=== PATIENT | male | born 1945 | race Caucasian/White ===

== ENCOUNTER 2021-02-11 06:55 | Day surgery (SDC) | payer MEDICARE, OTHER ==
[2021-01-17 10:17] VITALS: BMI 26.9
[~2021-02-11 06:55] MED LIST: LACTATED RINGERS 1,000 ML IV SCH; LIDOCAINE 1% (10MG/ML) FOR IV START INTRADERMA PRN
[2021-02-11 07:25] VITALS: TEMP 97.7
[2021-02-11] MEDS ORDERED: LIDOCAINE 1% INJ 10MG/ML (20 ML MDV) ONE (07:59)
[2021-02-11] MEDS ORDERED: PROPOFOL 10 MG/ML 20 ML VIAL IV ONE (07:59)
--- NOTE | 2021-02-11 08:30 | P.PCN ---
Date of Procedure: 02/11/21 Description of Procedure: BRIEF HISTORY: Patient is a 75-year-old male presenting for outpatient esophagogastroduodenoscopy for evaluation of symptoms of dysphagia. Patient has had 3 years of symptoms of dysphagia worse over the past few months. Predominantly to solid food. Patient currently not on any PPI. PROCEDURE PERFORMED: Esophagogastroduodenoscopy with biopsy and uvwfmvx-kfh-uvqkr balloon dilation. PREOPERATIVE DIAGNOSIS: Esophageal dysphagia. ESTIMATED BLOOD LOSS: Minimal. IV sedation per anesthesia. PROCEDURE: After informed consent was obtained, the patient was brought into the endoscopy unit. IV sedation was administered by Anesthesia under continuous monitoring. Initially the Olympus GIF-190 video endoscope was inserted into the mouth. Esophagus intubated without any difficulty. It was gradually advanced into the stomach and duodenum and carefully examined. The bulb and the second part of the duodenum appeared normal, with biopsies taken. The scope at this time was withdrawn to the stomach, adequately insufflated with air, and upon careful ex amination, mucosa of the antrum, body, cardia and the fundus appeared normal, with biopsies of the antrum and body taken. The scope was then withdrawn into the esophagus. The GE junction was located at 43 cm from the incisors and appeared normal except for a benign-appearing distal esophageal Schatzki's ring/stricture which was fairly dilated with pvgbdox-llq-xinmy balloon dilator at 10 mm11 mm12 mm until superficial mucosal tearing was noted. Biopsies of the lower esophagus and midesophagus to. The esophagus appeared normal. There were no erosions or ulcerations seen and the patient tolerated the procedure well. IMPRESSION: 1. Nonobstructing distal esophageal Schatzki's ring/stricture, dilated with iiqofkr-fvs-ucdtn balloon dilator. 2. Biopsies of the duodenum, antrum body, lower esophagus and midesophagus. RECOMMENDATIONS: The findings of this examination were discussed with the patient .and his family. Okay to resume diet. Okay to resume medications. Await pathology from biopsies. Recommend repeat EGD for further dilation if symptoms persist. Patient has been given a prescription for omeprazole 20 mg daily be taken 15-30 minutes before meals.
[2021-02-11 08:32] VITALS: PULSE 68; RESP 16
[2021-02-11 08:51] VITALS: BP 132/79
== END 2021-02-11 09:15 | disposition home or self-care (01) ==
LOC: ORWHC2ENDO 06:55
PROVIDERS: ATTEND Internal Medicine
DX: K22.2 Esophageal obstruction (principal); K21.9 Gastro-esophageal reflux disease without esophagitis; K29.80 Duodenitis without bleeding; K20.0 Eosinophilic esophagitis; K29.50 Unspecified chronic gastritis without bleeding; I10 Essential (primary) hypertension; N42.9 Disorder of prostate, unspecified; Z79.899 Other long term (current) drug therapy
CPT/HCPCS: 88305; 43239; 43249; J2001; J2704; C1726 ×2

== ENCOUNTER → 2023-10-14 | Outpatient (CLI) | payer MEDICARE, OTHER ==
[2023-10-15 06:37] LABS: Albumin 4.1 g/dL (3.8-4.9); Protein, Total 7.3 g/dL (6.2-8.2)
[2023-10-15 15:47] LABS: Gamma Globulin 1.55 g/dL (0.70-1.50)
== END | disposition home or self-care (01) ==
LOC: LABWHC1 06:54
PROVIDERS: ATTEND Psychiatry & Neurology Neurology
DX: G90.09 Other idiopathic peripheral autonomic neuropathy (principal)
CPT/HCPCS: 36415; 82607; 83036; 84165; 84207; 86334

== ENCOUNTER → 2023-12-23 | Outpatient (CLI) | payer MEDICARE, OTHER ==
--- NOTE | 2023-12-27 15:26 | MR ---
EXAMINATION TYPE: MR lumbar spine wo/w con DATE OF EXAM: 12/23/2023 8:55 AM CLINICAL INDICATION:Male, 78 years old with history of M54.50, Chronic LBP, BLE radiculopathy. COMPARISON: None TECHNIQUE: Multi planar, multi sequence imaging was performed utilizing: T1-weighted, T2-weighted, a nd turbo inversion recovery imaging of the lumbar spine. IV Contrast: 9 cc Gadavist. (None if empty) FINDINGS: Alignment: The lumbar vertebral bodies have preserved heights and alignment. Cord: The conus medullaris and the distal spinal cord appear unremarkable with regards to their signa l intensity and morphology. No abnormal postcontrast enhancement. Bones/Discs: Mild degeneration changes throughout the spine with osteophyte formation and facet joint arthropathy. Intervertebral disc signal is maintained. T12-L1: No evidence of significant spinal canal stenosis or neural foraminal stenosis. L1-L2: No evidence of significant spinal canal stenosis or neural foraminal stenosis. L2-L3: Disc bulge and facet joint arthropathy result in mild spinal canal and moderate bilateral neur al foraminal stenosis. L3-L4: Disc bulge and facet joint arthropathy result in mild spinal canal and moderate to severe bila teral neural foraminal stenosis. L4-L5: Disc bulge and facet joint arthropathy result in mild spinal canal and moderate to severe bila teral neural foraminal stenosis. L5-S1: The disc is rounded posterior morphology without significant spinal canal stenosis. Facet join t arthropathy with moderate to severe left and moderate right neural foraminal stenosis. . Osteophyte impresses upon the exiting left nerve series 601 image 5. No significant spinal canal or neural foraminal stenosis in the remainder of the visualized levels. Other findings: Infrarenal abdominal aorta fusiform dilation up to 3.0 cm. IMPRESSION: 1. No definitive evidence of disc herniation or significant spinal canal stenosis. No abnormal postc ontrast enhancement. 2. 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 No neural foraminal stenosis w orse at L5-S1 with osteophytes displacing the exiting left nerve. Additional moderate to severe neura l foraminal stenosis at multiple levels. 3. Infrarenal abdominal aortic aneurysm measuring up to 3.0 cm.
== END | disposition home or self-care (01) ==
LOC: RADMRIMAIN 07:43
PROVIDERS: ATTEND Internal Medicine Hematology & Oncology
DX: M51.36 Other intervertebral disc degeneration, lumbar region (principal); M99.73 Connective tissue and disc stenosis of intervertebral foramina of lumbar region; I71.43 Infrarenal abdominal aortic aneurysm, without rupture
CPT/HCPCS: 72158; A9585

== ENCOUNTER 2024-02-05 13:35 | Emergency (ER) | payer MEDICARE, OTHER ==
--- NOTE | 2024-02-05 14:47 | ED ---
SOB HPI - General Chief Complaint: Shortness of Breath Stated Complaint: LUBNA,Congestion Time Seen by Provider: 02/05/24 14:46 Source: patient, family, RN notes reviewed Mode of arrival: ambulatory Limitations: no limitations - History of Present Illness Initial Comments: 78-year-old male presented to the ER with chief complaint of cough and shortness of breath. He states this been going on for the past 2 weeks. He has been prescribed a Medrol Dosepak and doxycycline by PCP without relief. He states his cough has been persistent and he is having difficulty catching his breath. He denies any known fevers or chills. He is a former smoker. Denies any headache, chest pain, abdominal pain, constipation/diarrhea, urinary complaints or peripheral edema. - Related Data Home Medications Medication Instructions Recorded Confirmed Dutasteride [Avodart] 0.5 mg PO HS 01/17/21 02/05/24 Multivitamins, Thera [Multivitamin 1 tab PO DAILY 01/17/21 02/05/24 (formulary)] Tamsulosin [Flomax] 0.4 mg PO BID 01/17/21 02/05/24 levETIRAcetam [Keppra] 1,000 mg PO Q12HR 01/17/21 02/05/24 Atorvastatin [Lipitor] 10 mg PO HS 02/05/24 02/05/24 Cholecalciferol (Vitamin D3) 125 mcg PO DAILY 02/05/24 02/05/24 [Vitamin D3 (125 MCG = 5,000 IU)] Clobetasol Propionate [Clobex 1 applic TOPICAL HS PRN 02/05/24 02/05/24 0.05% Soln] Doxycycline Hyclate 100 mg PO BID 02/05/24 02/05/24 Escitalopram [Lexapro] 10 mg PO DAILY 02/05/24 02/05/24 Gabapentin [Neurontin] 100 mg PO TID 02/05/24 02/05/24 Hydrocortisone Cream 1 applic TOPICAL BID PRN 02/05/24 02/05/24 [Hydrocortisone 2.5% Cream] Ketoconazole 2% Shampoo [Nizoral] 1 applic TOPICAL DAILY PRN 02/05/24 02/05/24 LORazepam [Ativan] 0.5 mg PO TID PRN 02/05/24 02/05/24 Lidocaine 5% Patch [Lidoderm] 1 patch TOPICAL DAILY PRN 02/05/24 02/05/24 Metoprolol Succinate (ER) [Toprol 12.5 mg PO DAILY 02/05/24 02/05/24 Xl] allopurinoL [Zyloprim] 300 mg PO DAILY 02/05/24 02/05/24 fluocinolone acetonide oiL 1 applic BOTH EARS HS PRN 02/05/24 02/05/24 [fluocinolone acetonide oiL 0.01% (Otic)] methylPREDNISolone [Medrol Dose See Taper PO DIRECTED 02/05/24 02/05/24 Pack] tadalafiL 20 mg PO DAILY PRN 02/05/24 02/05/24 Previous Rx's Medication Instructions Recorded Benzonatate [Tessalon Perles] 100 mg PO TID PRN #15 capsule 02/05/24 Allergies Allergy/AdvReac Type Severity Reaction Status Date / Time No Known Allergies Allergy Verified 02/05/24 15:37 Review of Systems ROS Statement: Those systems with pertinent positive or pertinent negative responses have been documented in the HPI. ROS Other: All systems not noted in ROS Statement are negative. Past Medical History Past Medical History: GERD/Reflux, Hypertension, Prostate Disorder, Seizure Disorder Additional Past Medical History / Comment(s): had both covid vaccines,last seizure 2010, difficulty swallowing History of Any Multi-Drug Resistant Organisms: None Reported Past Surgical History: Appendectomy, Tonsillectomy Additional Past Surgical History / Comment(s): lt thumb Past Anesthesia/Blood Transfusion Reactions: No Reported Reaction Past Psychological History: No Psychological Hx Reported Smoking Status: Former smoker - Past Family History Father Family Medical History: Cancer Additional Family Medical History / Comment(s): skin General Exam Limitations: no limitations General appearance: alert, in no apparent distress, other (Mildly dyspneic with conversation) ENT exam: Present: normal exam, normal oropharynx, mucous membranes moist, TM's normal bilaterally Neck exam: Present: normal inspection. Absent: tenderness, meningismus, lymphadenopathy Respiratory exam: Present: wheezes (Upper lung green), rhonchi (Upper lung green) Cardiovascular Exam: Present: regular rate, normal rhythm, normal heart sounds. Absent: systolic murmur, diastolic murmur, rubs, gallop, clicks Extremities exam: Present: normal inspection, full ROM, normal capillary refill. Absent: tenderness, pedal edema, joint swelling, calf tenderness Neurological exam: Present: alert, oriented X3, CN II-XII intact Skin exam: Present: warm, dry, intact, normal color. Absent: rash Course Vital Signs 02/05/24 02/05/24 02/05/24 13:52 15:00 16:32 Temperature 97.5 F L Pulse Rate 69 53 L Respiratory 18 20 Rate Blood Pressure 147/83 O2 Sat by Pulse 95 Oximetry 02/05/24 02/05/24 16:43 17:10 Temperature 98.2 F Pulse Rate 60 61 Respiratory 18 Rate Blood Pressure 156/89 O2 Sat by Pulse 96 Oximetry Medical Decision Making - Medical Decision Making Was pt. sent in by a medical professional or institution (, PA, [facility], urgent care, hospital, or skilled nursing...) When possible be specific @ -No Did you speak to anyone other than the patient for history (EMS, parent, family, police, friend...)? What history was obtained from this source @ -No Did you review nursing and triage notes (agree or disagree)? Why? @ -I reviewed and agree with nursing and triage notes Were old charts reviewed (outside hosp., previous admission, EMS record, old EKG, old radiological studies, urgent care reports/EKG's, skilled nursing records)? Report findings @ -No old charts were reviewed Differential Diagnosis (chest pain, altered mental status, abdominal pain women, abdominal pain men, vaginal bleeding, weakness, fever, dyspnea, syncope, headache, dizziness, GI bleed, back pain, seizure, CVA, palpatations, mental health, musculoskeletal)? @ -Differential Dyspnea:Coronary syndrome, arrhythmia, tamponade, asthma, COPD, pulmonary embolism, pneumonia, pneumothorax, pulmonary effusion, anaphylaxis, diabetic ketoacidosis, flailed chest, pulmonary contusion, diaphragmatic rupture, anemia, neuromuscular, this is not meant to be an all-inclusive list. EKG interpreted by me (3pts min.). @ -None X-rays interpreted by me (1pt min.). @ -Chest x-ray significant for cardiomegaly. No other acute process. CT interpreted by me (1pt min.). @ -None done U/S interpreted by me (1pt. min.). @ -None done What testing was considered but not performed or refused? (CT, X-rays, U/S, labs)? Why? @ -None What meds were considered but not given or refused? Why? @ -None Did you discuss the management of the patient with other professionals (professionals i.e. , PA, [facility], lab, RT, psych nurse, social services aide, endless belt finisher, teacher, custody officer, supervisor case loading)? Give summary @ -No Was smoking cessation discussed for >3mins.? @ -No Was critical care preformed (if so, how long)? @ -No Were there social determinants of health that impacted care today? How? (Homelessness, low income, unemployed, alcoholism, drug addiction, transportation, low edu. Level, literacy, decrease access to med. care, fci, rehab)? @ -No Was there de-escalation of care discussed even if they declined (Discuss DNR or withdrawal of care, Hospice)? DNR status @ -No What co-morbidities impacted this encounter? (DM, HTN, Smoking, COPD, CAD, Cancer, CVA, ARF, Chemo, Hep., AIDS, mental health diagnosis, sleep apnea, morbid obesity)? @ -None Was patient admitted / discharged? Hospital course, mention meds given and route, prescriptions, significant lab abnormalities, going to OR and other pertinent info. @ -Discharge. 78-year-old male presented to the ER with chief complaint of a cough. History and physical exam completed. Vitals stable. Patient no signs of acute distress and nontoxic-appearing. Patient coughing with deep inspiration. Denies any pain. Lungs sounds significant for wheezing and rhonchi in upper lung green. COVID, RSV, influenza negative. Chest x-ray significant for cardiomegaly. Patient received Tessalon Perles and DuoNeb treatment in ER. Upon reevaluation, patient eager for discharge. Tessalon Perles prescribed. Advise close follow-up with PCP and advised if symptoms persist he should follow-up with cardiology. reports his market research senior project manager is Dr. Griffin. Return parameters discussed. Patient discharged in stable condition with follow-up to cardiology/PCP. Patient and verbally expressed understanding and agreement with care plan. Case discussed with ED attending, Dr. Bell. Undiagnosed new problem with uncertain prognosis? @ -No Drug Therapy requiring intensive monitoring for toxicity (Heparin, Nitro, Insulin, Cardizem)? @ -No Were any procedures done? @ -No Diagnosis/symptom? @ -Cough Acute, or Chronic, or Acute on Chronic? @ -Acute Uncomplicated (without systemic symptoms) or Complicated (systemic symptoms)? @ -Uncomplicated Side effects of treatment? @ -No Exacerbation, Progression, or Severe Exacerbation? @ -No Poses a threat to life or bodily function? How? (Chest pain, USA, ID, pneumonia, PE, COPD, DKA, ARF, appy, cholecystitis, CVA, Diverticulitis, Homicidal, Suicidal, threat to staff... and all critical care pts) @ -No - Lab Data Lab Results 02/05/24 Range/Units 14:53 Influenza Type A (PCR) Not Detected (Not Detectd) Influenza Type B (PCR) Not Detected (Not Detectd) RSV (PCR) Not Detected (Not Detectd) SARS-CoV-2 (PCR) Not Detected (Not Detectd) - Radiology Data Radiology results: report reviewed, image reviewed Disposition Clinical Impression: Cough, Cardiomegaly Disposition: HOME SELF-CARE Condition: Stable Instructions (If sedation given, give patient instructions): Chronic Cough (ED) Additional Instructions: Follow-up with market research senior project manager, Dr. Griffin, if symptoms persist. Return to the ER for any new or worsening concerns. Prescriptions: Benzonatate [Tessalon Perles] 100 mg PO TID PRN #15 capsule PRN Reason: Cough Is patient prescribed a controlled substance at d/c from ED?: No Referrals: Jesus Campo DO [Primary Care Provider] - 1-2 days Kevin Griffin DO [STAFF PHYSICIAN] - 1-2 days Time of Disposition: 17:05
[2024-02-05] MEDS: BENZONATATE 100 MG CAP PO STA (14:59)
--- NOTE | 2024-02-05 15:22 | XR ---
EXAMINATION TYPE: XR chest 2V DATE OF EXAM: 02/05/2024 COMPARISON: None INDICATION: Cough TECHNIQUE: Frontal and lateral views of the chest are obtained. FINDINGS: The heart size is mildly prominent. The pulmonary vasculature is normal. The lungs are clear. No focal infiltrates evident. IMPRESSION: 1. Mild cardiomegaly.
[2024-02-05] MEDS: IPRATROPIUM-ALBUTEROL 3 ML NEB INHALATION STA (16:32)
[2024-02-05 17:43] VITALS: BP 156/89; PULSE 61; RESP 18; TEMP 98.2
== END 2024-02-05 20:59 | disposition home or self-care (01) ==
LOC: EC 13:35
DX: R05.9 Cough, unspecified (principal); I51.7 Cardiomegaly; Z87.891 Personal history of nicotine dependence
CPT/HCPCS: 71046; 87636; 94640; 99285

== ENCOUNTER → 2024-02-22 | Outpatient (CLI) | payer MEDICARE, OTHER ==
[2024-02-22 14:35] LABS: African American GFR (CKD) 86 (>60 ml/min/1.73 sqM); Blood Urea Nitrogen 22 mg/dL (9-20); Non-African American GFR(CKD) 75 (>60 ml/min/1.73 sqM)
--- NOTE | 2024-02-22 19:08 | CT ---
EXAMINATION TYPE: CT angio chest CT DLP: 548 mGycm, Automated exposure control for dose reduction was used. DATE OF EXAM: 02/22/2024 2:55 PM COMPARISON: Chest radiograph of 02/05/2024 CLINICAL INDICATION:Male, 78 years old with history of R06.02 SHORTNESS OF BREATH; sob TECHNIQUE/CONTRAST: CTA scan of the thorax is performed with IV Contrast, patient injected with 100 mL of Isovue 300, MIP images are created and reviewed these are created on a separate workstation.. FINDINGS: Pulmonary Artery: There is no evidence for a filling defect within the pulmonary vasculature to sugge st acute pulmonary embolism. The pulmonary artery is of normal size. Lungs/Pleura: Moderately severe centrilobular emphysema upper mid lung zones. Limited end-stage nilda g disease and dependent lower lobes. No evidence of focal consolidation, pleural effusion or pneumoth orax. Airway: Large airways are patent. Heart: Mild cardiomegaly. Mild to moderate calcific coronary artery disease. Vasculature: No evidence of aortic aneurysm. Mediastinum: No gross evidence of adenopathy. Musculoskeletal: No acute osseous abnormalities Soft Tissues: Unremarkable. Lower neck: No significant findings. Upper Abdomen: No significant findings. IMPRESSION: 1. No evidence of pulmonary embolism. 2. Moderately pronounced emphysema. 3. Mild cardiomegaly and coronary artery disease. Follow up recommendations for incidental pulmonary nodules, if there are any, are per [employer] or [employer]. https://radiopaedia.org/articles/snguzkjtis-psmhgxx-[email or web address]-[email or web address]?lang=us
== END | disposition home or self-care (01) ==
LOC: RADCTMAIN 13:44
PROVIDERS: ATTEND Internal Medicine
DX: J43.2 Centrilobular emphysema (principal); I51.7 Cardiomegaly; I25.10 Atherosclerotic heart disease of native coronary artery without angina pectoris
CPT/HCPCS: 82565; 84520; 71275; 36415; Q9967

== ENCOUNTER → 2024-02-26 | Outpatient (CLI) | payer MEDICARE, OTHER | END | disposition home or self-care (01) | LOC: LABPRL 11:42 | PROVIDERS: ATTEND Internal Medicine Critical Care Medicine | DX: J44.1 Chronic obstructive pulmonary disease with (acute) exacerbation (principal) | CPT/HCPCS: 87070; 87205 ==

== ENCOUNTER → 2024-03-28 | Outpatient (CLI) | payer MEDICARE, OTHER ==
[2024-03-28 15:39] LABS: HGB 14.5 g/dL (13.0-17.0); MCH 34.9 pg (27.0-32.0); Mean Platelet Volume 10.5 FL (9.5-12.2); NRBC Per 100 WBC 0 X 10*3/uL (0.00-0.01); Platelet Count 229 X 10*3/uL (140-440); RBC 4.15 X 10*6/uL (4.40-5.60); WBC 5.42 X 10*3/uL (4.50-10.00)
[2024-03-28 15:48] LABS: Blood Urea Nitrogen 15.8 mg/dL (9.0-27.0)
[2024-03-28 15:49] LABS: Carbon Dioxide 26.1 mmol/L (21.6-31.8); Chloride 104 mmol/L (96-109); Potassium 5.1 mmol/L (3.5-5.5); Sodium 141 mmol/L (135-145)
== END | disposition home or self-care (01) ==
LOC: LABPAT 09:36
PROVIDERS: ATTEND Internal Medicine
DX: Z01.812 Encounter for preprocedural laboratory examination (principal)
CPT/HCPCS: 80051; 82565; 84520; 85027

== ENCOUNTER → 2024-03-30 | Day surgery (SDC) | payer MEDICARE, OTHER ==
[2024-03-29 09:01] VITALS: BMI 26.4
[~2024-03-30] MED LIST changes: +ALPRAZolam 0.25 MG TAB PO PRN; +ALPRAZolam 0.5 MG TAB PO PRN; +ASPIRIN 325 MG TAB PO STA; +HEPARIN SODIUM 1,000 UN/ML (10ML VL) ONE; -LACTATED RINGERS 1,000 ML IV SCH; -LIDOCAINE 1% (10MG/ML) FOR IV START INTRADERMA PRN; +NITROGLYCERIN SL TABS 0.4 MG TAB SUBLINGUAL PRN; +fentaNYL (PF) 50 MCG/ML 2 ML AMP ONE
[2024-03-30] MEDS: SODIUM CHLORIDE 0.9% 1,000 ML in EMPTY BAG 1 BAG IV SCH (08:12)
[2024-03-30 08:14] VITALS: RESP 16; TEMP 98
[2024-03-30] MEDS: fentaNYL (PF) 50 MCG/ML 2 ML AMP IVP ONE (09:30)
[2024-03-30] MEDS: MIDAZOLAM 2 MG/2 ML VIAL IVP ONE (09:30)
[2024-03-30] MEDS: LIDOCAINE 1% INJ 10MG/ML (20 ML MDV) SQ ONE (09:35)
[2024-03-30] MEDS: IOPAMIDOL-370 100ML BTL INJ ONE (09:53)
--- NOTE | 2024-03-30 09:58 | P.CARDCATH ---
Description of Procedure: PROCEDURES PERFORMED: Left heart catheterization, bilateral coronary angiography, ultrasound guided arterial access INDICATION: chest pain, dyspnea on exertion, coronary artery calcifications CONSENT:I have discussed the risks, benefits and alternative therapies for the above-mentioned procedure and for both sedation/analgesia as well as necessary blood product administration, if indicated, as they pertain to this patient. The patient has indicated understanding and acceptance of the risks and procedures discussed. PROCEDURE: After the risks, benefits and alternatives of the above mentioned procedure explained in detail with the patient, informed consent was obtained. Patient was taken to the catheterization lab and prepped and draped in usual fashion. Ultrasound guidance was used to assess for arterial access. Patient did not have an adequate Damaso's and therefore femoral axis was recommended. 1% lidocaine was used to anesthetize the right femoral area. A 6-English sheath was placed in the right femoral artery using modified Seldinger technique and ultrasound guidance. Left coronary angiography was performed with a 6-English JL 5.0 catheter (as the 4.0 was too short) and right coronary angiography was performed with a 6-English FR4 catheter in various views. A 6-English FR4 catheter was inserted into the left ventricle and pressure measurements were obtained. The right femoral angiogram showed adeqauet anatomy for closure and therefore a 6Fr Angioseal was placed with hemostasis achieved. The patient to lerated the procedure well. Patient was transported back to the post catheterization holding area in stable condition. Conscious Sedation: Patient was monitored under the direct supervision of myself for conscious sedation using Versed and fentanyl for a total duration of 15 minutes HEMODYNAMICS: Ao: 156/78 LV: 155/1, LVEDP 1 SELECTIVE CORONARY ARTERIOGRAPHY: LEFT MAIN: The left main is a large caliber vessel which bifurcates into the LAD and circumflex. There is no significant stenosis. LEFT ANTERIOR DESCENDING CORONARY ARTERY: LAD is a large caliber vessel which wraps around to the apex. There is mild mid LAD 20-30% stenosis and otherwise mild luminal irregularities. LEFT CIRCUMFLEX CORONARY ARTERY: Left circumflex is a moderate caliber vessel with mild luminal irregularities. RIGHT CORONARY ARTERY: The right coronary artery is a large caliber vessel which gives off a PDA and PLV branch and is the dominant vessel. There are mild luminal irregularities. FINAL IMPRESSION: 1. Mild CAD as described above with mid LAD 20-30% stenosis and otherwise mild luminal irregularities. 2. Low left sided filling pressures PLAN: 1. Aggressive risk factor modification per most recent ACC/AHA guidelines. 2. Follow-up in the office in 1-2 weeks.
[2024-03-30 15:41] VITALS: BP 156/72; PULSE 60
== END ==
LOC: CATHCVL 07:27
PROVIDERS: ATTEND Internal Medicine
DX: I25.10 Atherosclerotic heart disease of native coronary artery without angina pectoris (principal)
CPT/HCPCS: 93458; C1760; C1769 ×2; C1894 ×2; J2250; J2001; J3010; Q9967; 76937

== ENCOUNTER 2025-03-03 13:50 | Inpatient (IN) | payer MEDICARE, OTHER ==
--- NOTE | 2025-03-03 14:13 | ED ---
General Adult HPI - General Stated complaint: Palpitations Time Seen by Provider: 03/03/25 13:53 Source: patient, EMS, RN notes reviewed Mode of arrival: EMS Limitations: no limitations - History of Present Illness Initial comments: Patient is a 79-year-old male present to the emergency department with concerns for palpitations. Patient does have a history of this previously. Symptoms have worsened over the past week. Patient was recently placed on a monitor by cardiology, Dr. Griffin. Patient states he has had 4 episodes this past week where heart rate has dropped into the 30s. These episodes lasted up to around 10 minutes. Patient has associated lightheadedness. Patient denies any chest pain. Patient questions if he could have some associated dyspnea when symptoms are severe. EMS found patient in bigeminy on monitor occasionally. - Related Data Home Medications Medication Instructions Recorded Confirmed Multivitamins, Thera [Multivitamin 1 tab PO DAILY 01/17/21 03/03/25 (formulary)] levETIRAcetam [Keppra] 1,000 mg PO BID 01/17/21 03/03/25 Atorvastatin [Lipitor] 10 mg PO DAILY 02/05/24 03/03/25 Cholecalciferol (Vitamin D3) 125 mcg PO DAILY 02/05/24 03/03/25 [Vitamin D3 (125 MCG = 5,000 IU)] Escitalopram [Lexapro] 10 mg PO DAILY 02/05/24 03/03/25 Gabapentin [Neurontin] 300 mg PO HS 02/05/24 03/03/25 LORazepam [Ativan] 0.5 mg PO TID PRN 02/05/24 03/03/25 allopurinoL [Zyloprim] 300 mg PO DAILY 02/05/24 03/03/25 Azelastine HCl [Astepro Allergy] 1 spray EA NOSTRIL HS 03/03/25 03/03/25 Clobetasol Propionate [Temovate 1 applic TOPICAL DAILY 03/03/25 03/03/25 0.05% Oint] Fluticasone/Umeclidin/Vilanter 1 puff INHALATION RT-DAILY 03/03/25 03/03/25 [Trelegy Ellipta 100-62.5-25] Furosemide [Lasix] 20 mg PO DAILY 03/03/25 03/03/25 Lidocaine 5% Patch [Lidoderm] 1 patch TOPICAL DAILY PRN 03/03/25 03/03/25 Mupirocin 2% Oint [Bactroban 2% 1 applic TOPICAL HS 03/03/25 03/03/25 Oint] Potassium Chloride ER [K-Dur 10] 10 meq PO DAILY 03/03/25 03/03/25 Tamsulosin [Flomax] 0.4 mg PO BID 03/03/25 03/03/25 amLODIPine [Norvasc] 5 mg PO BID 03/03/25 03/03/25 Allergies Allergy/AdvReac Type Severity Reaction Status Date / Time No Known Allergies Allergy Verified 03/03/25 14:57 Review of Systems ROS Statement: Those systems with pertinent positive or pertinent negative responses have been documented in the HPI. ROS Other: All systems not noted in ROS Statement are negative. Constitutional: Denies: fever Eyes: Denies: eye pain ENT: Denies: ear pain Respiratory: Reports: as per HPI. Denies: cough Cardiovascular: Reports: as per HPI, palpitations. Denies: chest pain Endocrine: Denies: fatigue Gastrointestinal: Denies: abdominal pain Neurological: Denies: headache, weakness Past Medical History Past Medical History: GERD/Reflux, Hypertension, Prostate Disorder, Seizure Disorder Additional Past Medical History / Comment(s): had both covid vaccines,last seizure 2010, difficulty swallowing History of Any Multi-Drug Resistant Organisms: None Reported Past Surgical History: Appendectomy, Tonsillectomy Additional Past Surgical History / Comment(s): lt thumb Past Anesthesia/Blood Transfusion Reactions: No Reported Reaction Past Psychological History: No Psychological Hx Reported Additional Past Alcohol Use History / Comment(s): quit smoking 5 years ago - Past Family History Father Family Medical History: Cancer Additional Family Medical History / Comment(s): Skin cancer. General Exam Limitations: no limitations General appearance: alert, in no apparent distress Head exam: Present: normocephalic Eye exam: Present: normal appearance Neck exam: Present: normal inspection Respiratory exam: Present: normal lung sounds bilaterally Cardiovascular Exam: Present: regular rate, normal rhythm Expanded Peripheral pulses: 2+: Radial (R), Radial (L), Dorsalis Pedis (R), Dorsalis Pedis (L) GI/Abdominal exam: Present: soft. Absent: tenderness Extremities exam: Present: normal inspection. Absent: pedal edema, calf tenderness Neurological exam: Present: alert. Absent: motor sensory deficit Psychiatric exam: Present: normal affect, normal mood Skin exam: Present: normal color Course Vital Signs 03/03/25 14:09 Pulse Rate 80 Respiratory 18 Rate Blood Pressure 149/89 O2 Sat by Pulse 95 Oximetry EKG Findings - EKG Results: EKG: interpreted by GLENDAD (Frequent supraventricular premature complexes. Left axis. LVH criteria. No acute ST change.), sinus rhythm Medical Decision Making - Medical Decision Making Was pt. sent in by a medical professional or institution (, PA, NURSE AIDE EVALUATOR, urgent care, hospital, or group home...) When possible be specific @ -No Did you speak to anyone other than the patient for history (EMS, parent, family, police, friend...)? What history was obtained from this source @ -Daughters present helps provide history including heart rate and episodes Did you review nursing and triage notes (agree or disagree)? Why? @ -I reviewed and agree with nursing and triage notes Were old charts reviewed (outside hosp., previous admission, EMS record, old EKG, old radiological studies, urgent care reports/EKG's, group home records)? Report findings @ -No old charts were reviewed Differential Diagnosis (chest pain, altered mental status, abdominal pain women, abdominal pain men, vaginal bleeding, weakness, fever, dyspnea, syncope, headache, dizziness, GI bleed, back pain, seizure, CVA, palpatations, mental health, musculoskeletal)? @ -Differential Palpitations Ventricular arrhythmias, atrial arrhythmias, myocardial infarction, anemia, thyrotoxicosis, electrolyte imbalance, hypokalemia, pulmonary embolism, pulmonary disease, drugs, alcohol, anxiety, stress.... This is not meant to be an all-inclusive list. EKG interpreted by me (3pts min.). @ -As above X-rays interpreted by me (1pt min.). @ -Chest x-ray shows mild hazy appearance CT interpreted by me (1pt min.). @ -None done U/S interpreted by me (1pt. min.). @ -None done What testing was considered but not performed or refused? (CT, X-rays, U/S, labs)? Why? @ -proBNP has been added What meds were considered but not given or refused? Why? @ -None Did you discuss the management of the patient with other professionals (niraj kate i.e. , PA, NURSE AIDE EVALUATOR, lab, RT, psych nurse, social media specialist, photographer assistant, teacher, identification officer, onsite case manager)? Give summary @ -Case was discussed with Dr. Burton who will admit covering hospital call Was smoking cessation discussed for >3mins.? @ -No Was critical care preformed (if so, how long)? @ -No Were there social determinants of health that impacted care today? How? (Homelessness, low income, unemployed, alcoholism, drug addiction, transportation, low edu. Level, literacy, decrease access to med. care, custodial, rehab)? @ -No Was there de-escalation of care discussed even if they declined (Discuss DNR or withdrawal of care, Hospice)? DNR status @ -No What co-morbidities impacted this encounter? (DM, HTN, Smoking, COPD, CAD, Cancer, CVA, ARF, Chemo, Hep., AIDS, mental health diagnosis, sleep apnea, morbid obesity)? @ -None Was patient admitted / discharged? Hospital course, mention meds given and route, prescriptions, significant lab abnormalities, going to OR and other pertinent info. @ -Patient presents with palpitations. Patient has several readings at home with heart rate in the 30s. Patient will be admitted with cardiac consult. Admission orders written. Patient reevaluated. Patient and family updated. Undiagnosed new problem with uncertain prognosis? @ -No Drug Therapy requiring intensive monitoring for toxicity (Heparin, Nitro, Insulin, Cardizem)? @ -No Were any procedures done? @ -No Diagnosis/symptom? @ -Bradycardia Acute, or Chronic, or Acute on Chronic? @ -Acute Uncomplicated (without systemic symptoms) or Complicated (systemic symptoms)? @ -Default Side effects of treatment? @ -No Exacerbation, Progression, or Severe Exacerbation? @ -No Poses a threat to life or bodily function? How? (Chest pain, [place], [place], pneumonia, PE, COPD, DKA, ARF, appy, cholecystitis, CVA, Diverticulitis, Homicidal, Suicidal, threat to staff... and all critical care pts) @ -No - Lab Data Result diagrams: 03/03/25 14:59 03/03/25 14:59 Lab Results 03/03/25 03/03/25 03/03/25 Range/Units 14:59 14:59 14:59 WBC 8.13 (4.50-10.00) 10*3/uL RBC 3.88 L (4.40-5.60) 10*6/uL Hgb 13.7 (13.0-17.0) g/dL Hct 38.7 L (39.6-50.0) % MCV 99.7 H (80.0-97.0) fL MCH 35.3 H (27.0-32.0) pg MCHC 35.4 (32.0-37.0) g/dL Plt Count 189 (140-440) 10*3/uL MPV 10.9 (9.5-12.2) fL Immature Gran % (Auto) 0.4 % Neutrophils % 61.9 % Lymphocytes % 21.2 % Monocytes % 12.9 % Eosinophils % 3.1 % Basophils % 0.5 % Immature Gran # 0.03 (0.00-0.04) 10*3/uL Neutrophils # 5.04 (1.80-7.70) 10*3/uL Lymphocytes # 1.72 (0.90-5.00) 10*3/uL Monocytes # 1.05 H (0.20-1.00) 10*3/uL Eosinophils # 0.25 (0.04-0.35) 10*3/uL Basophils # 0.04 (0.00-0.10) 10*3/uL PT 11.9 (10.0-12.5) sec INR 1.1 (<1.2) APTT 22.2 (22.0-30.0) sec Sodium 136 L (137-145) mmol/L Potassium 3.8 (3.5-5.1) mmol/L Chloride 103 (98-107) mmol/L Carbon Dioxide 23 (22-30) mmol/L Anion Gap 10 mmol/L BUN 20 (9-20) mg/dL Creatinine 0.93 (0.66-1.25) mg/dL Est GFR (CKD-EPI)AfAm >90 (>60 ml/min/1.73 sqM) Est GFR (CKD-EPI)NonAf 79 (>60 ml/min/1.73 sqM) Glucose 149 H (74-99) mg/dL Calcium 9.5 (8.4-10.2) mg/dL Magnesium 1.9 (1.6-2.3) mg/dL Total Bilirubin 0.7 (0.2-1.3) mg/dL AST 35 (17-59) U/L ALT 24 (4-49) U/L Alkaline Phosphatase 65 (38-126) U/L Troponin I (0.000-0.034) ng/mL Total Protein 7.5 (6.3-8.2) g/dL Albumin 4.0 (3.5-5.0) g/dL TSH 2.060 (0.465-4.680) mIU/L Free T4 0.91 (0.78-2.19) ng/dL 03/03/25 Range/Units 14:59 WBC (4.50-10.00) 10*3/uL RBC (4.40-5.60) 10*6/uL Hgb (13.0-17.0) g/dL Hct (39.6-50.0) % MCV (80.0-97.0) fL MCH (27.0-32.0) pg MCHC (32.0-37.0) g/dL Plt Count (140-440) 10*3/uL MPV (9.5-12.2) fL Immature Gran % (Auto) % Neutrophils % % Lymphocytes % % Monocytes % % Eosinophils % % Basophils % % Immature Gran # (0.00-0.04) 10*3/uL Neutrophils # (1.80-7.70) 10*3/uL Lymphocytes # (0.90-5.00) 10*3/uL Monocytes # (0.20-1.00) 10*3/uL Eosinophils # (0.04-0.35) 10*3/uL Basophils # (0.00-0.10) 10*3/uL PT (10.0-12.5) sec INR (<1.2) APTT (22.0-30.0) sec Sodium (137-145) mmol/L Potassium (3.5-5.1) mmol/L Chloride (98-107) mmol/L Carbon Dioxide (22-30) mmol/L Anion Gap mmol/L BUN (9-20) mg/dL Creatinine (0.66-1.25) mg/dL Est GFR (CKD-EPI)AfAm (>60 ml/min/1.73 sqM) Est GFR (CKD-EPI)NonAf (>60 ml/min/1.73 sqM) Glucose (74-99) mg/dL Calcium (8.4-10.2) mg/dL Magnesium (1.6-2.3) mg/dL Total Bilirubin (0.2-1.3) mg/dL AST (17-59) U/L ALT (4-49) U/L Alkaline Phosphatase (38-126) U/L Troponin I <0.012 (0.000-0.034) ng/mL Total Protein (6.3-8.2) g/dL Albumin (3.5-5.0) g/dL TSH (0.465-4.680) mIU/L Free T4 (0.78-2.19) ng/dL Disposition Clinical Impression: Bradycardia Disposition: ADMITTED IP TO THIS HOSP Is patient prescribed a controlled substance at d/c from ED?: No Referrals: Jesus Campo DO [Primary Care Provider] - 1-2 days Time of Disposition: 16:04
[2025-03-03 15:06] LABS: Basophils # (A) 0.04 10*3/uL (0.00-0.10); Basophils % (A) 0.5 %; Eosinophils # (A) 0.25 10*3/uL (0.04-0.35); Eosinophils % (A) 3.1 %; HCT 38.7 % (39.6-50.0); HGB 13.7 g/dL (13.0-17.0); Lymphocytes # (A) 1.72 10*3/uL (0.90-5.00); Lymphocytes % (A) 21.2 %; MCH 35.3 pg (27.0-32.0); MCHC 35.4 g/dL (32.0-37.0); MCV 99.7 fL (80.0-97.0); Mean Platelet Volume 10.9 fL (9.5-12.2); Monocytes # (A) 1.05 10*3/uL (0.20-1.00); Monocytes % (A) 12.9 %; Neutrophils # (A) 5.04 10*3/uL (1.80-7.70); Neutrophils % (A) 61.9 %; Platelet Count 189 10*3/uL (140-440); RBC 3.88 10*6/uL (4.40-5.60); RDW 12.3 % (11.5-14.5); WBC 8.13 10*3/uL (4.50-10.00)
[2025-03-03 15:16] LABS: ALT 24 U/L (4-49); African American GFR (CKD) >90 (>60 ml/min/1.73 sqM); Anion Gap 10 mmol/L; Blood Urea Nitrogen 20 mg/dL (9-20); Calcium 9.5 mg/dL (8.4-10.2); Carbon Dioxide 23 mmol/L (22-30); Chloride 103 mmol/L (98-107); Glucose 149 mg/dL (74-99); Non-African American GFR(CKD) 79 (>60 ml/min/1.73 sqM); Sodium 136 mmol/L (137-145); Total Bilirubin 0.7 mg/dL (0.2-1.3); Total Protein 7.5 g/dL (6.3-8.2)
[2025-03-03 15:27] LABS: AST 35 U/L (17-59); Potassium 3.8 mmol/L (3.5-5.1)
[2025-03-03 15:28] LABS: Alkaline Phosphatase 65 U/L (38-126); Magnesium 1.9 mg/dL (1.6-2.3)
[2025-03-03 15:32] LABS: T4, Free (Free Thyroxine) 0.91 ng/dL (0.78-2.19)
--- NOTE | 2025-03-03 15:38 | XR ---
EXAMINATION TYPE: XR chest 2V DATE OF EXAM: 03/03/2025 3:20 PM COMPARISON: 02/05/2024 CLINICAL INDICATION: Male, 79 years old with history of dysrhythmia, shortness of breath TECHNIQUE: PA and lateral views FINDINGS: Heart mildly enlarged. Mildly tortuous/ectatic thoracic aorta. Generator device projects of the left mid chest. Diffuse interstitial densities persist. No consolidation or pleural effusion. IMPRESSION: Mild cardiomegaly and COPD. Prominent interstitial density could reflect bronchitis, atypical pneumon ias, 4 mild CHF with pulmonary vascular congestion. Clinically correlate. [facility], , 03/03/2025 3:35 PM
[2025-03-03 15:47] LABS: INR 1.1 (<1.2); Partial Thromboplastin Time 22.2 sec (22.0-30.0); Prothrombin Time 11.9 sec (10.0-12.5)
[2025-03-03] MEDS ORDERED: NALOXONE 0.4 MG/ML 1 ML VIAL IV PRN (16:04)
[2025-03-03] MEDS ORDERED: LIDOCAINE 4% PATCH TOPICAL PRN (16:33)
[2025-03-03 18:44] LABS: Influenza A Not Detected (Not Detectd); Influenza B Not Detected (Not Detectd); RSV Not Detected (Not Detectd)
[2025-03-03 19:19] LABS: Appearance,Urine Clear (Clear); Bilirubin,Urine Negative (Negative); Blood,Urine Negative (Negative); Color,Urine Yellow; Glucose,Urine (UA) Negative (Negative); Ketones,Urine Negative (Negative); Leukocyte Esterase,Urine Negative (Negative); Nitrite,Urine Negative (Negative); PH, Urine 5.5 (5.0-8.0); Protein,Urine Negative (Negative); Specific Gravity,Urine 1.024 (1.001-1.035); Urobilinogen,Urine <2.0 mg/dL (<2.0)
[2025-03-03] MEDS: SYMBICORT 160-4.5 MCG INHALER INHALATION SCH (19:36)
[2025-03-03] MEDS: GABAPENTIN 300 MG CAP PO SCH (20:08)
[2025-03-03] MEDS: levETIRAcetam 500 MG TAB PO SCH (20:08)
[2025-03-03] MEDS: amLODIPine 5 MG TAB PO SCH (20:08)
[2025-03-03] MEDS: TAMSULOSIN 0.4 MG CAP.ER.24H PO SCH (20:08)
[2025-03-03] MEDS: AZELASTINE 137MCG/SPRAY EA NOSTRIL SCH (21:10)
--- NOTE | 2025-03-04 02:52 | HP ---
HISTORY AND PHYSICAL CHIEF COMPLAINT: Palpitations as well as dizziness. HISTORY OF PRESENT ILLNESS: This is a 79-year-old gentleman with a past medical history of hypertension, history of seizure disorder, was complaining of recurrent episodes of dizziness and palpitations. Cardiology is monitoring the patient. The patient apparently had four episodes last week with a heart rate dropping to 30. The EMS found that the patient has significant PVCs at this time. EKG showed some ST-T changes. Cardiac cath done last year showed only mild disease with 20% to 30% stenosis. 2D echo report is not available. There is no history of fever, rigors, or chills at this time. PAST MEDICAL HISTORY: History of hypertension, seizure disorder. Rest of the history and rest of the chart are also reviewed. HOME MEDICATIONS: Reviewed include zyloprim. Doses and rest of medications reviewed. ALLERGIES: None. FAMILY HISTORY: History of skin cancer. SOCIAL HISTORY: Occasional alcohol. REVIEW OF SYSTEMS: Fourteen-point review of systems is negative except as mentioned earlier. PHYSICAL EXAMINATION: VITAL SIGNS: Pulse is 80, blood pressure 149/89, respirations 18. HEENT: Conjunctivae normal. NECK: No JVD. CARDIOVASCULAR: S1, S2 n. ABDOMEN: Soft, nontender. LEGS: No edema. No swelling. NERVOUS SYSTEM: No focal deficit. LABORATORY DATA: MCV 99.7. Otherwise, monocyte 1.05. Sodium 136, glucose 149. ASSESSMENT: 1. Palpitation, dizziness, bradycardia with multiple PVCs, rule out cardiac arrhythmia. 2. Hypertension. 3. History of seizure disorder. 4. History of gastroesophageal reflux disease. 5. History of difficulty in swallowing. RECOMMENDATIONS AND DISCUSSION: This is a 79-year-old gentleman, who presented with multiple complex medical issues. We will monitor the patient closely. Continue the current management and treatment. Otherwise, continue with Keppra. Continue rest of medications. Cardiology evaluation. Basic labs. Follow the patient closely. Prognosis guarded. Further recommendations to follow. MMODL / IJN: [id number] / MTDD
[2025-03-04] MEDS: TIOTROPIUM 2.5 MCG INHALER INHALATION SCH (07:45)
[2025-03-04] MEDS: MULTIVITAMINS, THERA 1 EACH TAB PO SCH (08:11)
[2025-03-04] MEDS: CHOLECALCIFEROL 125 MCG (5000 IU) TABLET PO SCH (08:11)
[2025-03-04] MEDS: allopurinoL 300 MG TAB PO SCH (08:11)
[2025-03-04] MEDS: FUROSEMIDE 20 MG TAB PO SCH (08:11)
[2025-03-04] MEDS: ATORVASTATIN 10 MG TAB PO SCH (08:11)
[2025-03-04] MEDS: ESCITALOPRAM 10 MG TAB PO SCH (08:12)
[2025-03-04] MEDS: POTASSIUM CHLORIDE ER 10 MEQ TAB.ER.PRT PO SCH (08:12)
[2025-03-04 08:39] LABS: Basophils # (A) 0.04 10*3/uL (0.00-0.10); Basophils % (A) 0.5 %; Eosinophils % (A) 3.7 %; HCT 40.9 % (39.6-50.0); HGB 13.9 g/dL (13.0-17.0); Lymphocytes # (A) 1.57 10*3/uL (0.90-5.00); Lymphocytes % (A) 19.2 %; MCH 34.7 pg (27.0-32.0); Mean Platelet Volume 11.1 fL (9.5-12.2); Monocytes # (A) 0.94 10*3/uL (0.20-1.00); Monocytes % (A) 11.5 %; Neutrophils # (A) 5.29 10*3/uL (1.80-7.70); Neutrophils % (A) 64.6 %; Platelet Count 203 10*3/uL (140-440); RBC 4.01 10*6/uL (4.40-5.60); RDW 12.5 % (11.5-14.5); WBC 8.18 10*3/uL (4.50-10.00)
[2025-03-04 08:54] LABS: ALT 25 U/L (4-49); AST 28 U/L (17-59); African American GFR (CKD) >90 (>60 ml/min/1.73 sqM); Albumin/Globulin Ratio 1.1; Alkaline Phosphatase 83 U/L (38-126); Anion Gap 12 mmol/L; Blood Urea Nitrogen 20 mg/dL (9-20); Calcium 9.4 mg/dL (8.4-10.2); Carbon Dioxide 25 mmol/L (22-30); Chloride 103 mmol/L (98-107); Globulin 3.5 g/dL; Glucose 135 mg/dL (74-99); Non-African American GFR(CKD) 82 (>60 ml/min/1.73 sqM); Sodium 140 mmol/L (137-145); Total Bilirubin 0.8 mg/dL (0.2-1.3); Total Protein 7.5 g/dL (6.3-8.2)
--- NOTE | 2025-03-04 09:51 | P.CRDCN ---
History of Present Illness Consult date: 03/04/25 History of present illness: The patient is a very pleasant 79-year-old gentleman who is known to our service from before with a past medical history significant for hypertension and dyslipidemia and cardiac arrhythmia with PVCs and PACs as well as history of palpitation presented to the hospital because he was not feeling well. He was seen recently by Dr. Griffin in the office and he was experiencing symptoms of palpitations heart racing while at that point an event monitor was placed. Subsequently the patient was experiencing more frequent palpitations/heart r acing. Ambulance was called. He underwent an EKG and that showed sinus mechanism with ventricular bigeminy. We consulted because of bradycardia. The patient did have a heart rate in the 40s but that was not showing. Currently he is not bradycardic. Hemodynamically he is stable with no symptoms of chest pain or chest discomfort or shortness of breath or presyncope or syncope and no edema in the lower extremities. He is not on any AV agustín davin agents. He underwent a heart catheterization in 2023 showed mild nonobstructive coronary artery disease. The physical examination is remarkable for regular rhythm with a distant heart sounds and systolic murmur at the right and left upper sternal border with clear breathing sounds bilaterally and no edema was noted in the lower extremities edema. We will obtain a copy of the event monitor. Avoid any AV agustín davin agents at this point. Assessment Palpitations/heart racing Ventricular bigeminy on the EKG "Bradycardia" but only nocturnal Multiple comorbid conditions including hypertension and dyslipidemia and overweight Plan Continue the current medical regimen TSH was checked and came in to be unremarkable Avoid any AV agustín davin agents at this point Obtain a copy of the event monitor results Further recommendation to follow Past Medical History Past Medical History: GERD/Reflux, Hypertension, Prostate Disorder, Seizure Disorder Additional Past Medical History / Comment(s): had both covid vaccines,last seizure 2010, difficulty swallowing History of Any Multi-Drug Resistant Organisms: None Reported Past Surgical History: Appendectomy, Tonsillectomy Additional Past Surgical History / Comment(s): lt thumb Past Anesthesia/Blood Transfusion Reactions: No Reported Reaction Past Psychological History: No Psychological Hx Reported Additional Past Alcohol Use History / Comment(s): quit smoking 5 years ago - Past Family History Father Family Medical History: Cancer Additional Family Medical History / Comment(s): Skin cancer. Medications and Allergies Home Medications Medication Instructions Recorded Confirmed Type Multivitamins, Thera [Multivitamin 1 tab PO DAILY 01/17/21 03/03/25 History (formulary)] levETIRAcetam [Keppra] 1,000 mg PO BID 01/17/21 03/03/25 History Atorvastatin [Lipitor] 10 mg PO DAILY 02/05/24 03/03/25 History Cholecalciferol (Vitamin D3) 125 mcg PO DAILY 02/05/24 03/03/25 History [Vitamin D3 (125 MCG = 5,000 IU)] Escitalopram [Lexapro] 10 mg PO DAILY 02/05/24 03/03/25 History Gabapentin [Neurontin] 300 mg PO HS 02/05/24 03/03/25 History LORazepam [Ativan] 0.5 mg PO TID PRN 02/05/24 03/03/25 History allopurinoL [Zyloprim] 300 mg PO DAILY 02/05/24 03/03/25 History Azelastine HCl [Astepro Allergy] 1 spray EA NOSTRIL HS 03/03/25 03/03/25 History Clobetasol Propionate [Temovate 1 applic TOPICAL DAILY 03/03/25 03/03/25 History 0.05% Oint] Fluticasone/Umeclidin/Vilanter 1 puff INHALATION RT-DAILY 03/03/25 03/03/25 History [Trelegy Ellipta 100-62.5-25] Furosemide [Lasix] 20 mg PO DAILY 03/03/25 03/03/25 History Lidocaine 5% Patch [Lidoderm] 1 patch TOPICAL DAILY PRN 03/03/25 03/03/25 History Mupirocin 2% Oint [Bactroban 2% 1 applic TOPICAL HS 03/03/25 03/03/25 History Oint] Potassium Chloride ER [K-Dur 10] 10 meq PO DAILY 03/03/25 03/03/25 History Tamsulosin [Flomax] 0.4 mg PO BID 03/03/25 03/03/25 History amLODIPine [Norvasc] 5 mg PO BID 03/03/25 03/03/25 History Allergies Allergy/AdvReac Type Severity Reaction Status Date / Time No Known Allergies Allergy Verified 03/03/25 14:57 Physical Exam Vitals: Vital Signs Temp Pulse Pulse Resp BP BP Pulse Ox 03/04/25 08:09 98.2 F 71 16 136/94 97 03/04/25 03:28 42 L 16 140/65 96 03/04/25 00:50 69 16 159/87 92 L 03/03/25 20:07 75 18 157/100 96 03/03/25 17:59 98.4 F 73 20 140/76 97 03/03/25 14:09 98.3 F 80 18 149/89 95 Results 03/04/25 08:18 03/04/25 08:18 Cardiac Enzymes 03/03/25 03/03/25 03/04/25 Range/Units 14:59 14:59 08:18 AST 35 28 (17-59) U/L Troponin I <0.012 (0.000-0.034) ng/mL Coagulation 03/03/25 Range/Units 14:59 PT 11.9 (10.0-12.5) sec APTT 22.2 (22.0-30.0) sec CBC 03/03/25 03/04/25 Range/Units 14:59 08:18 WBC 8.13 8.18 (4.50-10.00) 10*3/uL RBC 3.88 L 4.01 L (4.40-5.60) 10*6/uL Hgb 13.7 13.9 (13.0-17.0) g/dL Hct 38.7 L 40.9 (39.6-50.0) % Plt Count 189 203 (140-440) 10*3/uL Comprehensive Metabolic Panel 03/03/25 03/04/25 Range/Units 14:59 08:18 Sodium 136 L 140 (137-145) mmol/L Potassium 3.8 4.0 (3.5-5.1) mmol/L Chloride 103 103 (98-107) mmol/L Carbon Dioxide 23 25 (22-30) mmol/L BUN 20 20 (9-20) mg/dL Creatinine 0.93 0.90 (0.66-1.25) mg/dL Glucose 149 H 135 H (74-99) mg/dL Calcium 9.5 9.4 (8.4-10.2) mg/dL AST 35 28 (17-59) U/L ALT 24 25 (4-49) U/L Alkaline Phosphatase 65 83 (38-126) U/L Total Protein 7.5 7.5 (6.3-8.2) g/dL Albumin 4.0 4.0 (3.5-5.0) g/dL Current Medications Generic Name Dose Route Start Last Admin Trade Name Freq PRN Reason Stop Dose Admin Allopurinol 300 mg 03/04/25 09:00 03/04/25 08:11 Allopurinol 300 Mg Tab PO 300 mg DAILY PRISCILLA Administration Amlodipine Besylate 5 mg 03/03/25 21:00 03/04/25 08:12 Amlodipine 5 Mg Tab PO 5 mg BID PRISCILLA Administration Atorvastatin Calcium 10 mg 03/04/25 09:00 03/04/25 08:11 Atorvastatin 10 Mg Tab PO 10 mg DAILY PRISCILLA Administration Azelastine HCl 1 spray 03/03/25 21:00 03/03/25 21:10 Azelastine 137mcg/[place] EA NOSTRIL 1 spray HS PRISCILLA Administration Budesonide/Formoterol Fumarate 2 puff 03/03/25 20:00 03/04/25 07:45 Symbicort 160-4.5 Mcg Inhaler INHALATION Not Given RT-BID PRISCILLA Cholecalciferol 125 mcg 03/04/25 09:00 03/04/25 08:11 Cholecalciferol 125 Mcg (5000 Iu) Tablet PO 125 mcg DAILY PRISCILLA Administration Escitalopram Oxalate 10 mg 03/04/25 09:00 03/04/25 08:12 Escitalopram 10 Mg Tab PO 10 mg DAILY PRISCILLA Administration Furosemide 20 mg 03/04/25 09:00 03/04/25 08:11 Furosemide 20 Mg Tab PO 20 mg DAILY PRISCILLA Administration Gabapentin 300 mg 03/03/25 21:00 03/03/25 20:08 Gabapentin 300 Mg Cap PO 300 mg HS PRISCILLA Administration Levetiracetam 1,000 mg 03/03/25 21:00 03/04/25 08:11 Levetiracetam 500 Mg Tab PO 1,000 mg BID PRISCILLA Administration Lidocaine 1 patch 03/03/25 16:33 Lidocaine 4% Patch TOPICAL DAILY PRN pain Lorazepam 0.5 mg 03/03/25 16:11 Lorazepam 0.5 Mg Tab PO TID PRN Anxiety Multivitamins 1 each 03/04/25 09:00 03/04/25 08:11 Multivitamins, Thera 1 Each Tab PO 1 each DAILY PRISCILLA Administration Naloxone HCl 0.2 mg 03/03/25 16:04 Naloxone 0.4 Mg/Ml 1 Ml Vial IV Q2M PRN Opioid Reversal Potassium Chloride 10 meq 03/04/25 09:00 03/04/25 08:12 Potassium Chloride Er 10 Meq Tab.Er.Prt PO 10 meq DAILY PRISCILLA Administration Tamsulosin HCl 0.4 mg 03/03/25 21:00 03/04/25 08:12 Tamsulosin 0.4 Mg Cap.Er.24h PO 0.4 mg BID PRISCILLA Administration Tiotropium [place] 2 puff 03/04/25 08:00 03/04/25 07:45 Tiotropium 2.5 Mcg Inhaler INHALATION Not Given RT-DAILY PRISCILLA 03/04/25 08:18 03/04/25 08:18
[2025-03-04] MEDS ORDERED: Potassium Replacement Protocol 1 EACH MISC MISCELLANE PRN (15:05)
[2025-03-04] MEDS ORDERED: Magnesium Replacement Protocol 1 EACH MISC MISCELLANE PRN (15:05)
[2025-03-04] MEDS: DOCUSATE 100 MG CAP PO SCH (16:10)
--- NOTE | 2025-03-04 18:14 | CT ---
EXAMINATION TYPE: CT angio chest DATE OF EXAM: 03/04/2025 5:55 PM COMPARISON: CT chest study 02/22/2024. CLINICAL INDICATION: Male, 79 years old with history of pe; Elevated d-dimer. TECHNIQUE/CONTRAST: CTA scan of the thorax is performed with IV Contrast, patient injected with 100 ml mL of Isovue 370, MIP images are created and reviewed these are created on a separate workstation.. CT DLP: 443.3 mGycm, Automated exposure control for dose reduction was used. FINDINGS: Pulmonary Artery: There is no evidence for a filling defect within the pulmonary vasculature to sugge st acute pulmonary embolism. The pulmonary artery is of normal size. Lungs/Pleura: No evidence of focal consolidation, pleural effusion or pneumothorax. Emphysema. 6 mm p ulmonary nodule in the anterior aspect left upper lobe, stable from prior study 02/22/2024. Likely ling ular scarring/atelectasis, also stable. Airway: Large airways are patent. Heart: Cardiomegaly without pericardial effusion. Coronary artery calcifications. Vasculature: No evidence of aortic aneurysm. Mediastinum: No gross evidence of adenopathy. Musculoskeletal: No acute osseous abnormalities Soft Tissues/lymph nodes: Unremarkable. Lower neck: No significant findings. Upper Abdomen: No significant acute findings. Cholelithiasis. Decreased hepatic parenchymal attenuati on suggesting steatosis. IMPRESSION: 1. No evidence of acute pulmonary edema or acute pulmonary pathology. 2. Emphysema and stable 6 mm pulmonary nodule in the anterior aspect the left upper lobe. Recommend follow-up CT chest in one year to confirm two-year stability per Fleischner guidelines. 3. Cardiomegaly and coronary artery calcifications. [facility], , 03/04/2025 6:11 PM
[2025-03-04] MEDS: SENNOSIDES 8.6 MG TAB PO PRN (21:07)
[2025-03-04] MEDS: GABAPENTIN 100 MG CAP PO SCH (21:07)
--- NOTE | 2025-03-05 02:16 | PN ---
PROGRESS NOTE DATE OF SERVICE: 03/04/2025 SUBJECTIVE: This 79-year-old gentleman admitted with dizziness and palpitations, also had a ventricular bigeminy yesterday. The patient progress per Cardiology offices. No chest pain. No palpitation. PHYSICAL EXAMINATION: VITAL SIGNS: Pulse 70, blood pressure 138/90, respirations 16. CHEST: Clear to auscultation. CARDIOVASCULAR: S1 and S2. ABDOMEN: Soft. _. LABORATORY DATA: Reviewed. D-dimer is 0.73 and is negative. ASSESSMENT: 1. Palpitations, dizziness, bradycardia with multiple PVCs, rule out cardiac arrhythmia. 2. Hypertension. 3. History of seizure disorder. 4. History of gastroesophageal reflux disease. 5. Elevated D-dimer. 6. History of difficulty in swallowing. RECOMMENDATIONS: Recommend to continue current management and treatment. Otherwise, at this time I recommend CT angio of chest to complete the workup otherwise symptomatic treatment reviewed monitor evaluation per Cardiology, guarded prognosis. Further recommendations to follow. MMODL / IJN: [id number] / MTDD
[2025-03-05] MEDS: LORazepam 0.5 MG TAB PO PRN (08:21)
--- NOTE | 2025-03-05 10:04 | P.PN ---
Subjective Progress Note Date: 03/05/25 The patient is a very pleasant 79-year-old gentleman who is known to our service from before with a past medical history significant for hypertension and dyslipidemia and cardiac arrhythmia with PVCs and PACs as well as history of palpitation presented to the hospital because he was not feeling well. He was seen recently by Dr. Griffin in the office and he was experiencing symptoms of palpitations heart racing while at that point an event monitor was placed. Subsequently the patient was experiencing more frequent palpitations/heart racing. Ambulance was called. He underwent an EKG and that showed sinus mechanism with ventricular bigeminy. We consulted because of bradycardia. The patient did have a heart rate in the 40s but that was not showing. Currently he is not bradycardic. Hemodynamically he is stable with no symptoms of chest pain or chest discomfort or shortness of breath or presyncope or syncope and no edema in the lower extremities. He is not on any AV agustín davin agents. He underwent a heart catheterization in 2023 showed mild nonobstructive coronary artery disease. The physical examination is remarkable for regular rhythm with a distant heart sounds and systolic murmur at the right and left upper sternal border with clear breathing sounds bilaterally and no edema was noted in the lower extremities edema. We will obtain a copy of the event monitor. Avoid any AV agustín davin agents at this point. March 05, 2025 The patient was seen and evaluated this morning with he is asymptomatic beside intermittent episode of palpitation. I was able to review the event monitor results which showed sinus mechanism with no sinus bradycardia and only PVCs. The echo still pending. The examination is unremarkable besides soft systolic murmur at the right upper sternal border Assessment Palpitations/heart racing Ventricular bigeminy on the EKG "Bradycardia" but only nocturnal Multiple comorbid conditions including hypertension and dyslipidemia and overweight Plan Continue the current medical regimen TSH was checked and came in to be unremarkable Avoid any AV agustín davin agents at this point Follow-up with the echocardiogram Further recommendation to follow Objective - Vital Signs Vital signs: Vital Signs Temp 98.5 F 03/05/25 07:00 Pulse 67 03/05/25 07:00 Resp 18 03/05/25 07:00 BP 139/75 03/05/25 07:00 Pulse Ox 94 L 03/05/25 07:00 FiO2 Intake & Output 03/04/25 03/05/2525 18:59 06:59 18:59 Intake Total 540 Balance 540 Weight 92.533 kg Intake: Oral 540 Other: Voiding Method Toilet Toilet Toilet # Voids 2 - Labs CBC & Chem 7: 03/04/25 08:18 03/04/25 08:18
--- NOTE | 2025-03-05 13:48 | CA ---
Transthoracic Echo Report Name: Loy Nguyễn Age: 79 Gender: M : 1945 Exam Date: 03/04/2025 16:21 Exam Location: [facility] Ht (in): 73 Wt (lb): 204 Ordering Physician: Faustino Christianson MD ([id number]) Attending/Referring Phys: Marketing Operations Associate Kathie Fernandez RDCS Procedure CPT: Indications: arrhythmia Cardiac Hx: Technical Quality: Technically difficult study Contrast 1: Definity Total Dose (mL): 6 Contrast 2: Total Dose (mL): MEASUREMENTS (Male / Female) Normal Values 2D ECHO LV Diastolic Diameter PLAX 5.7 cm 4.2 - 5.9 / 3.9 - 5.3 cm LV Systolic Diameter PLAX 3.9 cm IVS Diastolic Thickness 1.1 cm 0.6 - 1.0 / 0.6 - 0.9 cm LVPW Diastolic Thickness 1.1 cm 0.6 - 1.0 / 0.6 - 0.9 cm LV Relative Wall Thickness 0.4 LVOT Diameter 2.3 cm LV Diastolic Volume MOD BP 91.3 cm??? 67 - 155 / 56 - 104 cm??? LV Systolic Volume MOD BP 35.7 cm??? 22 - 58 / 19 - 49 cm??? LV Ejection Fraction MOD BP 60.9 % >= 55 % LV Cardiac Index MOD BP 1595.5 cm???/min???m??? LV Diastolic Volume MOD 4C 108.1 cm??? LV Systolic Volume MOD 4C 39.5 cm??? LV Ejection Fraction MOD 4C 63.4 % LV Cardiac Index MOD 4C 1966.4 cm???/min???m??? LV Diastolic Length 4C 8.8 cm LV Systolic Length 4C 6.8 cm LV Diastolic Volume MOD 2C 77.8 cm??? LV Systolic Volume MOD 2C 31.9 cm??? LV Ejection Fraction MOD 2C 58.9 % LV Cardiac Index MOD 2C 1315.0 cm???/min???m??? LV Diastolic Length 2C 8.8 cm LV Systolic Length 2C 6.9 cm LA Volume 52.6 cm??? 18 - 58 / 22 - 52 cm??? LA Volume Index 24.0 cm???/m??? 16 - 28 cm???/m??? DOPPLER AV Peak Velocity 180.1 cm/s AV Peak Gradient 13.0 mmHg AV Mean Velocity 116.6 cm/s AV Mean Gradient 6.3 mmHg AV Velocity Time Integral 35.9 cm LVOT Peak Velocity 117.6 cm/s LVOT Peak Gradient 5.5 mmHg LVOT Velocity Time Integral 26.8 cm LVOT Stroke Volume 107.2 cm??? LVOT Stroke Volume Index 49.4 ml/m??? LVOT Cardiac Index 3075.8 cm???/min???m??? AV Area Cont Eq vti 3.0 cm??? AV Area Cont Eq pk 2.6 cm??? MV Area PHT 3.6 cm??? Mitral E Point Velocity 68.9 cm/s Mitral A Point Velocity 97.2 cm/s Mitral E to A Ratio 0.7 MV Deceleration Time 211.2 ms TR Peak Velocity 211.9 cm/s TR Peak Gradient 18.0 mmHg Right Atrial Pressure 5.0 mmHg Pulmonary Artery Systolic Pressu 23.0 mmHg Right Ventricular Systolic Press 23.0 mmHg PV Peak Velocity 80.4 cm/s PV Peak Gradient 2.6 mmHg FINDINGS Left Ventricle Left ventricular ejection fraction is estimated at 50 %. Mildly increased septal wall thickness. Left ventricular cavity size normal. No obvious regional wall motion abnormalities. Right Ventricle Normal right ventricular size and function. Right ventricular systolic pressure within normal limits. Right Atrium Normal right atrial size. Left Atrium Normal left atrial size. Mitral Valve Mitral valve thickened. Mitral annular calcification. No evidence for mitral valve prolapse. No mitral stenosis. Trace mitral regurgitation. Aortic Valve Trileaflet aortic valve. Diffuse thickening (sclerosis) of the aortic valve cusps without reduced excursion. No aortic valve stenosis or regurgitation. Tricuspid Valve Structurally normal tricuspid valve. No tricuspid stenosis. Trace to mild tricuspid regurgitation. Pulmonic Valve Pulmonic valve not well visualized. No pulmonic stenosis. Trace pulmonic regurgitation. Pericardium No pericardial effusion. Echo free space anterior to the right ventricle likely represents a fat pad. Aorta Normal size aortic root and proximal ascending aorta. CONCLUSIONS Technically difficult study for interpretation Low normal LV systolic function with EF at 50% Poorly visualized intracardiac valves Aortic sclerosis with a mean gradient of 6 mmHg Previewed by: Dr. Faustino Christianson MD (Electronically Signed) Final Date: 05 Mar 2025 13:47
--- NOTE | 2025-03-06 05:28 | PN ---
PROGRESS NOTE DATE OF SERVICE: 03/05/2025 SUBJECTIVE: This is a 79-year-old gentleman admitted with dizziness and palpitation and multiple PVCs and even bigeminy. Cardiology is following the patient closely. The CTA of the chest showed a 6 mm pulmonary nodule in the anterior aspect of the left upper lobe. No other acute findings. OBJECTIVE: VITAL SIGNS: Pulse is 80, blood pressure 130/64, respirations 17. CHEST: Clear to auscultation. CARDIOVASCULAR: S1, S2. ABDOMEN: Soft. NERVOUS SYSTEM: Nonfocal. LABORATORY DATA: Reviewed. Mag is not available. ASSESSMENT: 1. Palpitation, dizziness, bradycardia with multiple paroxysmal ventricular contractions, rule out cardiac arrhythmia. 2. 6 mm pulmonary nodule in the left upper lobe. 3. Hypertension. 4. History of seizure disorder. 5. History of gastroesophageal reflux disease. 6. Elevated D-dimer with no evidence of pulmonary embolism. 7. History of difficulty in swallowing. RECOMMENDATIONS: Recommend to continue current management and continue symptomatic treatment. Follow closely with Cardiology. I would recommend to repeat labs. Check magnesium also. Guarded prognosis. Further recommendations to follow. MMODL / IJN: [id number] /
--- NOTE | 2025-03-06 11:02 | P.PN ---
Subjective HISTORY OF PRESENT ILLNESS: The patient is a very pleasant 79-year-old gentleman who is known to our service from before with a past medical history significant for hypertension and dyslipidemia and cardiac arrhythmia with PVCs and PACs as well as history of palpitation presented to the hospital because he was not feeling well. He was seen recently by Dr. Griffin in the office and he was experiencing symptoms of palpitations heart racing while at that point an event monitor was placed. Subsequently the patient was experiencing more frequent palpitations/heart racing. Ambulance was called. He underwent an EKG and that showed sinus mec hanism with ventricular bigeminy. We consulted because of bradycardia. The patient did have a heart rate in the 40s but that was not showing. Currently he is not bradycardic. Hemodynamically he is stable with no symptoms of chest pain or chest discomfort or shortness of breath or presyncope or syncope and no edema in the lower extremities. He is not on any AV agustín davin agents. He underwe nt a heart catheterization in 2023 showed mild nonobstructive coronary artery disease. The physical examination is remarkable for regular rhythm with a distant heart sounds and systolic murmur at the right and left upper sternal border with clear breathing sounds bilaterally and no edema was noted in the lower extremities edema. We will obtain a copy of the event monitor. Avoid any AV agustín davin agents at this point. March 05, 2025 The patient was seen and evaluated this morning with he is asymptomatic beside intermittent episode of palpitation. I was able to review the event monitor res ults which showed sinus mechanism with no sinus bradycardia and only PVCs. The echo still pending. The examination is unremarkable besides soft systolic murmur at the right upper sternal border 03/06/2025 Patient examined this morning the bedside. Patient currently denies chest pain or pressure. He denies shortness of breath. He reports having mild dizziness this morning. Patient did ambulate up and down the hallway this morning without any issues. Telemetry reveals sinus mechanism with occasional PVCs. No arrhythmias noted. Echocardiogram completed revealing ejection fraction 50%, no obvious regional wall motion abnormalities, trace MR, trace to mild TR PHYSICAL EXAM: VITAL SIGNS: Reviewed. GENERAL: Well-developed in no acute distress. NECK: Supple. No JVD or thyromegaly LUNGS: Respirations even and unlabored. Lungs essentially clear to auscultation bilaterally. HEART: Regular rate and rhythm. S1 and S2 heard. EXTREMITIES: Normal range of motion. No clubbing or cyanosis. Peripheral pulses intact. No lower extremity edema ASSESSMENT: Palpitations Dizziness Ventricular bigeminy noted on EKG Hypertension Hyperlipidemia PLAN: Continue current cardiac medications Patient currently has an event monitor that was placed in the cardiology office Patient is stable for discharge home today from a cardiac standpoint Patient to follow-up postdischarge in the office with Dr. Griffin and will review event monitor results once he has completed wearing it for the ordered timeframe No further inpatient recommendations. We will sign off. Please reconsult if needed. Nurse practitioner note has been reviewed by physician. Signing provider agrees with the documented findings, assessment, and plan of care documented by CONCERT PIANIST as a scribe. Objective - Vital Signs Vital signs: Vital Signs Temp 98.2 F 03/06/25 07:15 Pulse 70 03/06/25 07:15 Resp 18 03/06/25 07:15 BP 148/67 03/06/25 07:15 Pulse Ox 97 03/06/25 08:31 FiO2 Intake & Output 03/05/25 03/06/25 03/06/25 18:59 06:59 18:59 Intake Total 472 236 Balance 472 236 Intake: Oral 472 236 Other: Voiding Method Toilet Toilet Toilet # Voids 2 1 # Bowel Movements 0 - Labs CBC & Chem 7: 03/04/25 08:18 03/04/25 08:18
[2025-03-06 12:53] LABS: African American GFR (CKD) 90 (>60 ml/min/1.73 sqM); Anion Gap 8 mmol/L; Blood Urea Nitrogen 21 mg/dL (9-20); Calcium 9.2 mg/dL (8.4-10.2); Carbon Dioxide 24 mmol/L (22-30); Chloride 106 mmol/L (98-107); Glucose 106 mg/dL (74-99); Magnesium 1.9 mg/dL (1.6-2.3); Non-African American GFR(CKD) 78 (>60 ml/min/1.73 sqM); Sodium 138 mmol/L (137-145)
[2025-03-06 12:54] LABS: Basophils # (A) 0.04 10*3/uL (0.00-0.10); Basophils % (A) 0.6 %; Eosinophils # (A) 0.24 10*3/uL (0.04-0.35); Eosinophils % (A) 3.4 %; HCT 38.2 % (39.6-50.0); HGB 13.2 g/dL (13.0-17.0); Lymphocytes # (A) 1.39 10*3/uL (0.90-5.00); Lymphocytes % (A) 19.7 %; MCHC 34.6 g/dL (32.0-37.0); MCV 101.3 fL (80.0-97.0); Mean Platelet Volume 11.5 fL (9.5-12.2); Monocytes # (A) 1.22 10*3/uL (0.20-1.00); Monocytes % (A) 17.3 %; Neutrophils # (A) 4.14 10*3/uL (1.80-7.70); Neutrophils % (A) 58.4 %; Platelet Count 192 10*3/uL (140-440); RBC 3.77 10*6/uL (4.40-5.60); RDW 12.3 % (11.5-14.5); WBC 7.07 10*3/uL (4.50-10.00)
--- NOTE | 2025-03-06 16:04 | PN ---
PROGRESS NOTE DATE OF SERVICE: 03/06/2025 SUBJECTIVE: This is a 79-year-old gentleman who was admitted with palpitation, dizziness, has multiple PVCs. No chest pain. No palpitations. The patient is also on Holter monitoring. OBJECTIVE: VITAL SIGNS: Pulse is 70, blood pressure 140/60, and respirations 18. HEENT: Conjunctivae normal. CARDIOVASCULAR: S1, S2. ABDOMEN: Soft. NERVOUS SYSTEM: Nonfocal. LABORATORY DATA: Reviewed. ASSESSMENT: 1. Palpitation, dizziness, bradycardia with multiple premature ventricular contraction, rule out cardiac arrhythmia. 2. A 6 mm pulmonary nodule in the left upper lobe in the CAT scan. 3. No evidence of pulmonary embolism. 4. Hypertension. 5. History of seizure disorder. 6. History of gastroesophageal reflux disease. 7. Elevated D-dimer with no evidence of pulmonary embolism. 8. History of difficulty in swallowing. RECOMMENDATIONS: This 79-year-old gentleman presented with multiple complex medical issues, we will monitor the patient closely. Continue the current management and symptomatic treatment. Otherwise at this time, recommend CT of the brain and orthostatic vitals to complete the workup. Symptomatic treatment. Closely follow with Cardiology. Increase ambulation. The daughter is very much worried about the patient's performance at home, because he is taking care of handicapped . We will continue to monitor. Further recommendations to follow. MMODL / IJN: [id number] /
[2025-03-06] MEDS: MECLIZINE 12.5 MG TAB PO SCH (16:10)
--- NOTE | 2025-03-06 16:22 | CT ---
EXAMINATION TYPE: CT brain wo con CT DLP: 1150.5 mGycm, Automated exposure control for dose reduction was used. DATE OF EXAM: 03/06/2025 4:14 PM COMPARISON: None. CLINICAL INDICATION:Male, 79 years old with history of stroke, r/o stroke. TECHNIQUE: Brain: Multiple axial CT images of the brain were obtained without IV contrast. . Coronal and sagitta l reformats reviewed. FINDINGS: Brain: Extra-axial spaces: No abnormal extra-axial fluid collections. Ventricular system: Dilatation in proportion to cerebral atrophy. Cerebral parenchyma: Cerebral atrophy. No acute intraparenchymal hemorrhage or mass effect. Region o f cortical calcification involving the left frontoparietal region. Scattered hypoattenuating areas ar e seen within the periventricular white matter. Cerebellum: Unremarkable. Mass effect: No evidence of midline shift. Intracranial vasculature: Atherosclerotic calcifications of the intracranial vessels. Soft tissues: Normal. Calvarium/osseous structures: No depressed skull fracture. Paranasal sinuses and mastoid air cells: Clear. Hypoplastic appearance of the bilateral frontal sinus es. Visualized orbits: Bilateral aphakia IMPRESSION: 1. No acute intracranial process. 2. Nonspecific white matter changes, likely secondary to chronic small vessel ischemic disease. 3. Focal region of cortical calcification at the garcia-white matter junction of the left frontoparieta l region. Consistent with cortical laminar necrosis. This could be further evaluated with MRI as clin ically indicated. [facility], , 03/06/2025 4:20 PM
[2025-03-06 20:39] VITALS: RESP 16
[2025-03-07 07:35] VITALS: BP 130/67; PULSE 59; TEMP 97.9
[2025-03-07 11:31] LABS: Basophils # (A) 0.05 10*3/uL (0.00-0.10); Basophils % (A) 0.8 %; Eosinophils # (A) 0.25 10*3/uL (0.04-0.35); Eosinophils % (A) 3.9 %; HCT 39.6 % (39.6-50.0); HGB 13.3 g/dL (13.0-17.0); Lymphocytes # (A) 1.38 10*3/uL (0.90-5.00); Lymphocytes % (A) 21.3 %; MCH 34.5 pg (27.0-32.0); MCHC 33.6 g/dL (32.0-37.0); MCV 102.6 fL (80.0-97.0); Mean Platelet Volume 10.9 fL (9.5-12.2); Monocytes # (A) 0.99 10*3/uL (0.20-1.00); Monocytes % (A) 15.3 %; Neutrophils % (A) 58.4 %; Platelet Count 209 10*3/uL (140-440); RBC 3.86 10*6/uL (4.40-5.60); RDW 12.4 % (11.5-14.5); WBC 6.49 10*3/uL (4.50-10.00)
[2025-03-07 11:49] LABS: African American GFR (CKD) 84 (>60 ml/min/1.73 sqM); Anion Gap 7 mmol/L; Blood Urea Nitrogen 20 mg/dL (9-20); Calcium 9.3 mg/dL (8.4-10.2); Carbon Dioxide 25 mmol/L (22-30); Chloride 106 mmol/L (98-107); Glucose 125 mg/dL (74-99); Non-African American GFR(CKD) 73 (>60 ml/min/1.73 sqM); Potassium 3.9 mmol/L (3.5-5.1); Sodium 138 mmol/L (137-145)
== END 2025-03-07 14:55 | disposition home or self-care (01) | DRG 310 ==
LOC: EC 13:50 → 6NMEDSUR 16:04 → OBSVTOIN 03-07 11:31
PROVIDERS: ADMIT Hospitalist; ATTEND Hospitalist
DX: R00.1 Bradycardia, unspecified (principal); E66.3 Overweight; G40.909 Epilepsy, unspecified, not intractable, without status epilepticus; I10 Essential (primary) hypertension; I08.1 Rheumatic disorders of both mitral and tricuspid valves; I49.3 Ventricular premature depolarization; Z11.52 Encounter for screening for COVID-19; Z68.26 Body mass index [BMI] 26.0-26.9, adult; E78.5 Hyperlipidemia, unspecified; I25.10 Atherosclerotic heart disease of native coronary artery without angina pectoris; Z79.899 Other long term (current) drug therapy; Z87.891 Personal history of nicotine dependence
CPT/HCPCS: 36415; 70450; 71046; 71275; 80048; 80053; 81003; 83735; 83880; 84439; 84443; 84481; 84484; 85025; 85379; 85610; 85652; 85730; 86038; 87636; 93005; 93306; 94760; 99285